=== PATIENT | female | born 1960 | race Caucasian/White ===

== ENCOUNTER 2016-11-14 18:46 | Inpatient (IN) | payer MEDICAID ==
[~2016-11-14] VITALS: Ht 162.6 cm; Wt 70.5 kg
[2016-11-14 21:27] LABS: BASOPHIL % 0.3 % (0-2); PLATELET COUNT 204 x10^3mcL (130-400)
[2016-11-14 21:28] LABS: RED CELL DISTRIBUTION WIDTH 14.6 % (11.5-14.5)
[2016-11-14 22:04] LABS: ALBUMIN 3.4 g/dL (3.4-5.0); BILIRUBIN TOTAL 0.58 mg/dL (0.20-1.00); CALCIUM 8.9 mg/dL (8.5-10.1); CARBON DIOXIDE 27.6 mmol/L (21-32); CREATININE SERUM 1.6 mg/dL (0.6-1.0); POTASSIUM SERUM 4.8 mmol/L (3.5-5.1); T4(THYROXINE) 8.8 ug/dL (4.7-13.3); TOTAL PROTEIN, SERUM 7.6 g/dL (6.4-8.2)
[2016-11-14 23:18] LABS: UA SPECIFIC GRAVITY 1.025 (1.005-1.035); microscopic required? YES
[2016-11-14 23:19] LABS: urine erythrocyte NEGATIVE (NEGATIVE)
[2016-11-14 23:33] LABS: AMPHETAMINE QUAL UR NONE DETECTED (NEG <=1000)
[2016-11-14 23:35] LABS: MAGNESIUM 2.4 mg/dL (1.8-2.4)
[2016-11-15 00:58] VITALS: BP 152/67
[2016-11-15 07:01] LABS: CALCIUM 8.8 mg/dL (8.5-10.1); CARBON DIOXIDE 20.5 mmol/L (21-32); CREATININE SERUM 1.1 mg/dL (0.6-1.0); POTASSIUM SERUM 5.5 mmol/L (3.5-5.1)
[2016-11-15 07:31] LABS: PLATELET COUNT 174 x10^3mcL (130-400)
[2016-11-15 07:33] LABS: BASOPHIL % 0 % (0-2); RED CELL DISTRIBUTION WIDTH 14.8 % (11.5-14.5)
[2016-11-15 09:21] VITALS: BP 169/79
[2016-11-15 11:18] VITALS: Ht 162.6 cm; Wt 70.5 kg
[2016-11-15 15:07] VITALS: BP 185/89
[2016-11-15 17:29] VITALS: BP 189/83
[2016-11-15 21:41] VITALS: BP 133/65
[2016-11-15 21:42] VITALS: BP 133/65
[2016-11-16 05:52] VITALS: BP 171/76
[2016-11-16 06:13] LABS: BASOPHIL % 0.3 % (0-2); PLATELET COUNT 200 x10^3mcL (130-400)
[2016-11-16 06:40] LABS: RED CELL DISTRIBUTION WIDTH 14.7 % (11.5-14.5)
[2016-11-16 07:02] LABS: CALCIUM 8.5 mg/dL (8.5-10.1); CARBON DIOXIDE 28.2 mmol/L (21-32); CHLORIDE SERUM 110 mmol/L (98-107); CREATININE SERUM 0.5 mg/dL (0.6-1.0); GFR1 > 60 mL/min; GLUCOSE SERUM 94 mg/dL (74-106); MAGNESIUM 1.8 mg/dL (1.8-2.4); PHOSPHOROUS 3.5 mg/dL (2.5-4.9); POTASSIUM SERUM 3.3 mmol/L (3.5-5.1); SODIUM SERUM 143 mmol/L (136-145)
[2016-11-16 09:33] VITALS: BP 154/65
[2016-11-16] MEDS ORDERED: METOPROLOL TART25 M1 PO (15:10)
[2016-11-16] MEDS ORDERED: ZES10 PO (15:10)
[2016-11-16] MEDS ORDERED: LIPI10 PO (15:10)
[2016-11-16] MEDS ORDERED: ECO81 PO (15:11)
[2016-11-16] MEDS ORDERED: GLU5 PO (15:11)
[2016-11-16 15:23] VITALS: BP 154/65
[2016-11-16] MEDS ORDERED: METFORMIN850 M1 PO (16:52)
== END 2016-11-16 16:34 | disposition home or self-care (01) | DRG 420 ==
LOC: ED 18:46 → MU 22:05 → DU 22:05 → MU 11-15 10:15
PROVIDERS: Emergency Medicine; ADMIT Family Medicine
DX: E11.00 Type 2 diabetes mellitus with hyperosmolarity without nonketotic hyperglycemic-hyperosmolar coma (NKHHC) (principal); N17.0 Acute kidney failure with tubular necrosis; E11.51 Type 2 diabetes mellitus with diabetic peripheral angiopathy without gangrene; I16.0 Hypertensive urgency; J06.9 Acute upper respiratory infection, unspecified; E87.1 Hypo-osmolality and hyponatremia; E87.6 Hypokalemia; E83.39 Other disorders of phosphorus metabolism; D64.9 Anemia, unspecified; H54.42 Blindness, left eye, normal vision right eye; Z79.84 Long term (current) use of oral hypoglycemic drugs; Z68.26 Body mass index [BMI] 26.0-26.9, adult
CPT/HCPCS: 82962; 83880; 87804; J1815; J2930; J7030; J7613; J7644; Q0092

== ENCOUNTER 2017-04-04 13:10 | Emergency (ER) | payer MEDICAID ==
[~2017-04-04 13:10] MED LIST: ECO81 PO; GLU5 PO; LIPI10 PO; METFORMIN850 M1 PO; METOPROLOL TART25 M1 PO; ZES10 PO
[2017-04-04 13:20] VITALS: BP 195/92
== END 2017-04-04 14:13 | disposition home or self-care (01) ==
LOC: ED 13:10
DX: J06.9 Acute upper respiratory infection, unspecified (principal); H66.92 Otitis media, unspecified, left ear; I10 Essential (primary) hypertension; E11.9 Type 2 diabetes mellitus without complications

== ENCOUNTER 2017-04-17 02:32 | Emergency (ER) | payer MEDICAID ==
[~2017-04-17] VITALS: Ht 160 cm; Wt 68.9 kg
[2017-04-17 02:39] VITALS: Ht 160 cm; Wt 68.9 kg
[2017-04-17 04:08] VITALS: BP 191/86
== END 2017-04-17 04:08 | disposition home or self-care (01) ==
LOC: ED 02:32
DX: J20.9 Acute bronchitis, unspecified (principal); I10 Essential (primary) hypertension; E11.9 Type 2 diabetes mellitus without complications
CPT/HCPCS: Q0092

== ENCOUNTER 2017-08-08 12:19 | Emergency (ER) | payer MEDICAID ==
[2017-08-08 14:56] VITALS: BP 140/72
== END 2017-08-08 14:56 | disposition home or self-care (01) ==
LOC: ED 12:19
DX: J30.9 Allergic rhinitis, unspecified (principal); I10 Essential (primary) hypertension; E11.9 Type 2 diabetes mellitus without complications

== ENCOUNTER 2018-09-13 18:28 | Emergency (ER) | payer MEDICAID ==
[~2018-09-13] VITALS: Ht 157.5 cm; Wt 68.9 kg
[2018-09-13 19:08] VITALS: Ht 157.5 cm; Wt 68.9 kg
[2018-09-13 19:54] LABS: BASOPHIL % 0.4 % (0-2); PLATELET COUNT 342 x10^3mcL (130-400)
[2018-09-13 20:52] LABS: ERYTHROCYTE SED RATE 111 mm/hr (0-30)
[2018-09-14 00:50] VITALS: BP 152/79
== END 2018-09-14 00:50 | disposition home or self-care (01) ==
LOC: ED 18:28
PROVIDERS: Emergency Medicine
DX: E11.621 Type 2 diabetes mellitus with foot ulcer (principal); L97.519 Non-pressure chronic ulcer of other part of right foot with unspecified severity; E11.65 Type 2 diabetes mellitus with hyperglycemia; I10 Essential (primary) hypertension
CPT/HCPCS: 82962; J2543; J3370; J7030; J7050; Q0092

== ENCOUNTER 2019-04-07 11:24 | Inpatient (IN) | payer MEDICAID ==
[~2019-04-07] VITALS: Ht 157.5 cm; Wt 73.9 kg
[2019-04-07 11:47] VITALS: Ht 157.5 cm; Wt 73.9 kg
[2019-04-07 12:33] LABS: ALBUMIN 2.8 g/dL (3.4-5.0); CARBON DIOXIDE 21.5 mmol/L (21-32); CREATININE SERUM 2.5 mg/dL (0.6-1.0); TOTAL PROTEIN, SERUM 6.9 g/dL (6.4-8.2)
[2019-04-07 12:34] LABS: BILIRUBIN TOTAL 0.32 mg/dL (0.20-1.00); CALCIUM 8.2 mg/dL (8.5-10.1)
[2019-04-07 12:39] LABS: POTASSIUM SERUM 6.1 mmol/L (3.5-5.1)
[2019-04-07 12:55] LABS: BASOPHIL % 0.3 % (0-2); PLATELET COUNT 209 x10^3mcL (130-400); RED CELL DISTRIBUTION WIDTH 14.5 % (11.5-14.5)
[2019-04-07] MEDS ORDERED: TRA100 PO (13:31)
[2019-04-07] MEDS ORDERED: LASIX40 MG (13:31)
[2019-04-07 14:50] LABS: MAGNESIUM 2.7 mg/dL (1.8-2.4); PHOSPHOROUS 4.9 mg/dL (2.5-4.9)
[2019-04-07 14:51] LABS: CHOLESTEROL/HDL RATIO 5.3
[2019-04-07 15:33] LABS: FREE T4 0.95 ng/dL (0.76-1.46); FREE THYROXINE INDEX 2.3 ug/dL (1.4-4.5); T4(THYROXINE) 6.3 ug/dL (4.7-13.3)
[2019-04-07 15:52] LABS: T3 TOTAL 0.85 ng/mL
[2019-04-07 16:27] VITALS: BP 197/81
[2019-04-07 16:59] VITALS: BP 191/86
[2019-04-07 21:09] VITALS: BP 152/61
[2019-04-08] VITALS (13 sets, daily range): BP systolic 138–184; BP diastolic 51–77
[2019-04-08 06:25] LABS: BASOPHIL % 0.4 % (0-2); PLATELET COUNT 173 x10^3mcL (130-400); RED CELL DISTRIBUTION WIDTH 14.5 % (11.5-14.5)
[2019-04-08 06:56] LABS: POTASSIUM SERUM 5.5 mmol/L (3.5-5.1)
[2019-04-08 06:57] LABS: CALCIUM 8.2 mg/dL (8.5-10.1); CARBON DIOXIDE 22.1 mmol/L (21-32); CREATININE SERUM 2.6 mg/dL (0.6-1.0)
[2019-04-08 17:43] LABS: microscopic required? YES; urine erythrocyte 1+ (NEGATIVE)
[2019-04-08 21:42] LABS: APPEARANCE FLUID CLEAR; SOURCE FLUID THORACENTESIS
[2019-04-08 21:43] LABS: COLOR FLUID PALE YELLOW; LYMPHOCYTE FLUID 80 %; MONOCYTE FLUID 5 %; RBC FLUID 127 /cumm; WBC FLUID 71 /cumm
[2019-04-09] VITALS (8 sets, daily range): BP systolic 135–170; BP diastolic 48–76
[2019-04-09 06:36] LABS: BASOPHIL % 0.3 % (0-2); PLATELET COUNT 196 x10^3mcL (130-400); RED CELL DISTRIBUTION WIDTH 14.5 % (11.5-14.5)
[2019-04-09 07:33] LABS: CALCIUM 8.4 mg/dL (8.5-10.1); CARBON DIOXIDE 22.7 mmol/L (21-32); CREATININE SERUM 2.6 mg/dL (0.6-1.0); MAGNESIUM 2.6 mg/dL (1.8-2.4); POTASSIUM SERUM 5.1 mmol/L (3.5-5.1)
[2019-04-10] VITALS (9 sets, daily range): BP systolic 135–180; BP diastolic 51–84
[2019-04-10 06:11] LABS: BASOPHIL % 0.3 % (0-2); PLATELET COUNT 182 x10^3mcL (130-400); RED CELL DISTRIBUTION WIDTH 14.5 % (11.5-14.5)
[2019-04-10 07:57] LABS: CALCIUM 8.1 mg/dL (8.5-10.1); CARBON DIOXIDE 23.9 mmol/L (21-32); CREATININE SERUM 2.6 mg/dL (0.6-1.0); POTASSIUM SERUM 5.3 mmol/L (3.5-5.1)
[2019-04-10 18:57] LABS: microscopic required? YES; urine erythrocyte 1+ (NEGATIVE)
[2019-04-11 05:35] VITALS: BP 161/57
[2019-04-11 06:00] LABS: BASOPHIL % 0.3 % (0-2); PLATELET COUNT 188 x10^3mcL (130-400)
[2019-04-11 06:06] LABS: RED CELL DISTRIBUTION WIDTH 14.6 % (11.5-14.5)
[2019-04-11 07:55] LABS: CALCIUM 8.1 mg/dL (8.5-10.1); CREATININE SERUM 2.6 mg/dL (0.6-1.0)
[2019-04-11 08:48] VITALS: BP 160/54
[2019-04-11 08:53] LABS: CARBON DIOXIDE 21.4 mmol/L (21-32); POTASSIUM SERUM 4.7 mmol/L (3.5-5.1)
[2019-04-11 12:17] VITALS: BP 143/54
[2019-04-11 16:54] VITALS: BP 160/65
[2019-04-11 20:58] VITALS: BP 171/71
[2019-04-11 23:30] VITALS: BP 163/64
[2019-04-12 05:57] VITALS: BP 143/61
[2019-04-12 06:44] LABS: CALCIUM 8.4 mg/dL (8.5-10.1); CARBON DIOXIDE 22.8 mmol/L (21-32); CREATININE SERUM 2.7 mg/dL (0.6-1.0); POTASSIUM SERUM 4.5 mmol/L (3.5-5.1)
[2019-04-12 07:14] LABS: BASOPHIL % 0.4 % (0-2); PLATELET COUNT 196 x10^3mcL (130-400)
[2019-04-12 07:18] LABS: RED CELL DISTRIBUTION WIDTH 14.8 % (11.5-14.5)
[2019-04-12 13:41] VITALS: BP 154/56
[2019-04-12 21:06] VITALS: BP 175/57
[2019-04-12 23:00] VITALS: BP 161/57
[2019-04-13 05:58] VITALS: BP 154/50
[2019-04-13 07:05] LABS: CALCIUM 7.8 mg/dL (8.5-10.1); CARBON DIOXIDE 23.9 mmol/L (21-32); CREATININE SERUM 2.7 mg/dL (0.6-1.0); POTASSIUM SERUM 4.7 mmol/L (3.5-5.1)
[2019-04-13 08:52] VITALS: BP 127/51
[2019-04-13 09:59] LABS: BASOPHIL % 0.5 % (0-2); PLATELET COUNT 191 x10^3mcL (130-400)
[2019-04-13 10:16] LABS: RED CELL DISTRIBUTION WIDTH 15.2 % (11.5-14.5)
[2019-04-13] MEDS ORDERED: CORE25 PO (10:27)
[2019-04-13] MEDS ORDERED: LIPI20 PO (10:27)
[2019-04-13] MEDS ORDERED: APR50 PO (10:27)
[2019-04-13] MEDS ORDERED: ECO81 PO (10:27)
[2019-04-13] MEDS ORDERED: L40 PO (10:37)
[2019-04-13 11:11] VITALS: BP 127/51
== END 2019-04-13 12:00 | disposition home or self-care (01) | DRG 194 ==
LOC: ED 11:24 → MU 13:08 → DU 13:08 → MU 04-12 17:09
PROVIDERS: Family Medicine; Internal Medicine; Internal Medicine Cardiovascular Disease; ADMIT Student in an Organized Health Care Education/Training Program
PROC: 0W993ZZ Drainage of Right Pleural Cavity, Percutaneous Approach (ICD-10-PCS; principal; 2019-04-08)
PROC: 0W9B3ZZ Drainage of Left Pleural Cavity, Percutaneous Approach (ICD-10-PCS; 2019-04-11)
DX: I13.0 Hypertensive heart and chronic kidney disease with heart failure and stage 1 through stage 4 chronic kidney disease, or unspecified chronic kidney disease (principal); N17.0 Acute kidney failure with tubular necrosis; I50.43 Acute on chronic combined systolic (congestive) and diastolic (congestive) heart failure; E11.22 Type 2 diabetes mellitus with diabetic chronic kidney disease; J90 Pleural effusion, not elsewhere classified; I42.9 Cardiomyopathy, unspecified; E87.5 Hyperkalemia; J06.0 Acute laryngopharyngitis; N18.9 Chronic kidney disease, unspecified; E78.5 Hyperlipidemia, unspecified; H54.40 Blindness, one eye, unspecified eye; Z79.82 Long term (current) use of aspirin; Z79.84 Long term (current) use of oral hypoglycemic drugs; Z89.421 Acquired absence of other right toe(s); Z68.29 Body mass index [BMI] 29.0-29.9, adult
CPT/HCPCS: 32555; 82962; 83880; 84439; 85378; 90658; 90732; C1729; G0378; J0696; J1815; J1940; J7050; Q0092

== ENCOUNTER 2019-04-25 07:43 | Inpatient (IN) | payer MEDICAID ==
[~2019-04-25] VITALS: Ht 157.5 cm; Wt 70.8 kg
[~2019-04-25 07:43] MED LIST changes: +APR50 PO; +CORE25 PO; +L40 PO; +LASIX40 MG; +LIPI20 PO; +TRA100 PO
[2019-04-25 07:58] VITALS: Ht 157.5 cm; Wt 70.8 kg
[2019-04-25 09:25] LABS: BASOPHIL % 0.1 % (0-2); PLATELET COUNT 162 x10^3mcL (130-400); RED CELL DISTRIBUTION WIDTH 14.1 % (11.5-14.5)
[2019-04-25 09:51] LABS: BILIRUBIN TOTAL 0.5 mg/dL (0.20-1.00); CALCIUM 8.1 mg/dL (8.5-10.1); CARBON DIOXIDE 19.1 mmol/L (21-32); CREATININE SERUM 2.7 mg/dL (0.6-1.0); TOTAL PROTEIN, SERUM 7.1 g/dL (6.4-8.2)
[2019-04-25 09:59] LABS: POTASSIUM SERUM 5.6 mmol/L (3.5-5.1)
[2019-04-25 12:45] LABS: microscopic required? YES; urine erythrocyte 1+ (NEGATIVE)
[2019-04-25 13:10] VITALS: BP 154/72
[2019-04-25 13:44] LABS: MAGNESIUM 2.4 mg/dL (1.8-2.4); PHOSPHOROUS 3.6 mg/dL (2.5-4.9)
[2019-04-25 13:57] VITALS: BP 161/69
[2019-04-25 16:15] VITALS: BP 164/61
[2019-04-25 21:20] VITALS: BP 144/55
[2019-04-26 06:18] VITALS: BP 165/59
[2019-04-26 06:28] LABS: BASOPHIL % 0.4 % (0-2); RED CELL DISTRIBUTION WIDTH 14.1 % (11.5-14.5)
[2019-04-26 07:04] LABS: CALCIUM 7.9 mg/dL (8.5-10.1); CARBON DIOXIDE 19.2 mmol/L (21-32); CREATININE SERUM 2.9 mg/dL (0.6-1.0); POTASSIUM SERUM 4.4 mmol/L (3.5-5.1)
[2019-04-26 07:13] LABS: PLATELET COUNT 128 x10^3mcL (130-400)
[2019-04-26 07:55] VITALS: BP 118/48
[2019-04-26 10:32] LABS: rbc morphology (normal/abnorm) NORMAL (NORMAL)
[2019-04-26 12:55] VITALS: BP 136/34
[2019-04-26 16:24] VITALS: BP 151/60
[2019-04-26 21:31] VITALS: BP 167/68
[2019-04-27 05:30] VITALS: BP 159/66
[2019-04-27 07:00] LABS: CARBON DIOXIDE 19.5 mmol/L (21-32); CREATININE SERUM 3.4 mg/dL (0.6-1.0); POTASSIUM SERUM 4.6 mmol/L (3.5-5.1)
[2019-04-27 08:30] VITALS: BP 157/63
[2019-04-27 08:53] LABS: PLATELET COUNT 130 x10^3mcL (130-400); RED CELL DISTRIBUTION WIDTH 14.1 % (11.5-14.5)
[2019-04-27 08:56] LABS: BASOPHIL % 0 % (0-2)
[2019-04-27 12:13] VITALS: BP 119/50
[2019-04-27 16:29] VITALS: BP 132/81
[2019-04-27 19:21] VITALS: BP 166/57
[2019-04-28] VITALS (8 sets, daily range): BP systolic 147–176; BP diastolic 54–72
[2019-04-28 06:43] LABS: CALCIUM 7.9 mg/dL (8.5-10.1); CARBON DIOXIDE 18.2 mmol/L (21-32); CREATININE SERUM 3.9 mg/dL (0.6-1.0); POTASSIUM SERUM 4.5 mmol/L (3.5-5.1)
[2019-04-29 05:38] VITALS: BP 176/75
[2019-04-29 06:37] LABS: BASOPHIL % 0.3 % (0-2); PLATELET COUNT 136 x10^3mcL (130-400); RED CELL DISTRIBUTION WIDTH 13.7 % (11.5-14.5)
[2019-04-29 06:56] LABS: CALCIUM 7.4 mg/dL (8.5-10.1); CARBON DIOXIDE 18.1 mmol/L (21-32); POTASSIUM SERUM 4.3 mmol/L (3.5-5.1)
[2019-04-29 08:15] VITALS: BP 172/73
[2019-04-29 11:20] VITALS: BP 159/68
[2019-04-29 12:01] VITALS: BP 159/68
[2019-04-29 16:31] VITALS: BP 157/68
[2019-04-29 20:48] VITALS: BP 182/63
[2019-04-30 05:08] VITALS: BP 163/61
[2019-04-30 06:31] LABS: PLATELET COUNT 138 x10^3mcL (130-400); RED CELL DISTRIBUTION WIDTH 13.6 % (11.5-14.5)
[2019-04-30 06:49] LABS: CALCIUM 7.3 mg/dL (8.5-10.1); CARBON DIOXIDE 18.6 mmol/L (21-32); POTASSIUM SERUM 4.2 mmol/L (3.5-5.1)
[2019-04-30 08:39] VITALS: BP 106/52
[2019-04-30 12:04] LABS: BAND NEUTROPHIL 5 % (0-10); BASOPHIL 0 % (0-2); MONOCYTE 14 % (0-7); PLATELET MORPHOLOGY PLATELETS INCREASED; SEGMENTED NEUTROPHILS 64 % (37-75)
[2019-04-30 12:05] LABS: rbc morphology (normal/abnorm) ABNORMAL (NORMAL)
[2019-04-30 13:34] VITALS: BP 175/69
[2019-04-30 17:26] VITALS: BP 181/69
[2019-04-30 18:02] VITALS: BP 161/69
[2019-04-30 20:40] VITALS: BP 178/69
[2019-05-01 02:56] VITALS: BP 135/59
[2019-05-01 05:00] VITALS: BP 153/65
[2019-05-01 07:32] LABS: BASOPHIL % 0.2 % (0-2); PLATELET COUNT 136 x10^3mcL (130-400)
[2019-05-01 07:35] LABS: CALCIUM 7.6 mg/dL (8.5-10.1); CARBON DIOXIDE 25.5 mmol/L (21-32); CREATININE SERUM 2.7 mg/dL (0.6-1.0); POTASSIUM SERUM 3.4 mmol/L (3.5-5.1)
[2019-05-01 08:13] VITALS: BP 163/58
[2019-05-01 13:10] VITALS: BP 154/71
[2019-05-01 20:29] VITALS: BP 182/72
[2019-05-01 23:50] VITALS: BP 151/77
[2019-05-02 05:56] VITALS: BP 179/82
[2019-05-02 06:40] LABS: BASOPHIL % 0.2 % (0-2); RED CELL DISTRIBUTION WIDTH 13.8 % (11.5-14.5)
[2019-05-02 06:44] LABS: PLATELET COUNT 129 x10^3mcL (130-400)
[2019-05-02 07:29] LABS: CALCIUM 7.5 mg/dL (8.5-10.1); CARBON DIOXIDE 25.4 mmol/L (21-32); CREATININE SERUM 3.2 mg/dL (0.6-1.0); POTASSIUM SERUM 3.7 mmol/L (3.5-5.1)
[2019-05-02 08:28] VITALS: BP 176/66
[2019-05-02 14:02] VITALS: BP 162/67
[2019-05-02 18:17] VITALS: BP 159/78
[2019-05-02 20:36] VITALS: BP 113/59
[2019-05-03 05:44] VITALS: BP 166/63
[2019-05-03 06:19] LABS: BASOPHIL % 0.2 % (0-2); PLATELET COUNT 139 x10^3mcL (130-400); RED CELL DISTRIBUTION WIDTH 13.5 % (11.5-14.5)
[2019-05-03 06:52] LABS: CALCIUM 7.4 mg/dL (8.5-10.1); CARBON DIOXIDE 29.5 mmol/L (21-32); CREATININE SERUM 2.4 mg/dL (0.6-1.0); POTASSIUM SERUM 3.6 mmol/L (3.5-5.1)
[2019-05-03 07:39] VITALS: BP 113/56
[2019-05-03 11:34] VITALS: BP 150/65
[2019-05-03] MEDS ORDERED: ZITHROMAX TRI-500 MG PO (12:58)
[2019-05-03] MEDS ORDERED: PRE20 PO (12:59)
[2019-05-03] MEDS ORDERED: PREDNISONE10 MG PO (12:59)
[2019-05-03] MEDS ORDERED: PREDNISONE5 MG PO (13:00)
[2019-05-03] MEDS ORDERED: APR25 PO (13:01)
[2019-05-03 16:14] VITALS: BP 174/79
[2019-05-03 17:13] VITALS: BP 153/66
== END 2019-05-03 17:32 | disposition home or self-care (01) | DRG 720 ==
LOC: ED 07:43 → MU 11:55 → DU 11:55 → MU 05-02 14:03
PROVIDERS: Emergency Medicine; Internal Medicine; Student in an Organized Health Care Education/Training Program; ADMIT Internal Medicine
PROC: 30233N1 Transfusion of Nonautologous Red Blood Cells into Peripheral Vein, Percutaneous Approach (ICD-10-PCS; principal; 2019-04-26)
PROC: 5A1D70Z Performance of Urinary Filtration, Intermittent, Less than 6 Hours Per Day (ICD-10-PCS; 2019-04-30)
PROC: 05HY33Z Insertion of Infusion Device into Upper Vein, Percutaneous Approach (ICD-10-PCS; 2019-04-30)
PROC: B54MZZA Ultrasonography of Right Upper Extremity Veins, Guidance (ICD-10-PCS; 2019-04-30)
PROC: 5A1D70Z Performance of Urinary Filtration, Intermittent, Less than 6 Hours Per Day (ICD-10-PCS; 2019-05-02)
PROC: 05PYX3Z Removal of Infusion Device from Upper Vein, External Approach (ICD-10-PCS; 2019-05-02)
PROC: 05HM33Z Insertion of Infusion Device into Right Internal Jugular Vein, Percutaneous Approach (ICD-10-PCS; 2019-05-02)
DX: A41.9 Sepsis, unspecified organism (principal); N17.0 Acute kidney failure with tubular necrosis; J96.20 Acute and chronic respiratory failure, unspecified whether with hypoxia or hypercapnia; I13.2 Hypertensive heart and chronic kidney disease with heart failure and with stage 5 chronic kidney disease, or end stage renal disease; J18.9 Pneumonia, unspecified organism; N18.5 Chronic kidney disease, stage 5; I42.9 Cardiomyopathy, unspecified; E11.21 Type 2 diabetes mellitus with diabetic nephropathy; I50.43 Acute on chronic combined systolic (congestive) and diastolic (congestive) heart failure; E87.2 Acidosis; E11.22 Type 2 diabetes mellitus with diabetic chronic kidney disease; E11.65 Type 2 diabetes mellitus with hyperglycemia; E87.5 Hyperkalemia; H54.62 Unqualified visual loss, left eye, normal vision right eye; E78.5 Hyperlipidemia, unspecified; D64.9 Anemia, unspecified; Z99.2 Dependence on renal dialysis; Z91.14 Patient's other noncompliance with medication regimen; Z79.84 Long term (current) use of oral hypoglycemic drugs; Z79.4 Long term (current) use of insulin; Z79.82 Long term (current) use of aspirin; Z89.421 Acquired absence of other right toe(s); Z68.25 Body mass index [BMI] 25.0-25.9, adult
CPT/HCPCS: 82962; 83880; 86580; 87804; 97116-GP; A4301; G0378; J0360; J0456; J0696; J1644; J1815; J1940; J2001; J2250; J2405; J2543; J2920; J3010; J3430; J3490; J7030; J7040; J7050; P9016; P9047; Q0092; Q0163

== ENCOUNTER 2019-07-11 08:42 | Emergency (ER) | payer MEDICAID ==
[~2019-07-11] VITALS: Ht 160 cm; Wt 68.0 kg
[~2019-07-11 08:42] MED LIST changes: +APR25 PO; +HYDRALAZINE HCL50 MG PO; +LASIX40 MG PO; +LIPITOR20 MG PO; +PRE20 PO; +PREDNISONE10 MG PO; +PREDNISONE5 MG PO; +ZITHROMAX TRI-500 MG PO
[2019-07-11 08:47] VITALS: Ht 160 cm; Wt 68.0 kg
[2019-07-11 09:54] LABS: CALCIUM 8.2 mg/dL (8.5-10.1); CARBON DIOXIDE 28.3 mmol/L (21-32); CREATININE SERUM 3.5 mg/dL (0.6-1.0); POTASSIUM SERUM 4.5 mmol/L (3.5-5.1)
[2019-07-11 09:58] LABS: BILIRUBIN TOTAL 0.5 mg/dL (0.20-1.00); TOTAL PROTEIN, SERUM 6.7 g/dL (6.4-8.2)
[2019-07-11 09:59] LABS: ALBUMIN 3.1 g/dL (3.4-5.0)
[2019-07-11 10:01] LABS: BASOPHIL % 0.2 % (0-2); PLATELET COUNT 156 x10^3mcL (130-400); RED CELL DISTRIBUTION WIDTH 15.2 % (11.5-14.5)
[2019-07-11 11:19] VITALS: BP 190/78
== END 2019-07-11 11:19 | disposition home or self-care (01) ==
LOC: ED 08:42
PROVIDERS: Emergency Medicine
DX: R10.11 Right upper quadrant pain (principal); E11.22 Type 2 diabetes mellitus with diabetic chronic kidney disease; I12.0 Hypertensive chronic kidney disease with stage 5 chronic kidney disease or end stage renal disease; N18.6 End stage renal disease
CPT/HCPCS: J2405; J3010; Q0092

== ENCOUNTER 2019-10-05 10:28 | Emergency (ER) | payer MEDICAID ==
[~2019-10-05] VITALS: Ht 157.5 cm; Wt 65.8 kg
[2019-10-05 10:33] VITALS: Ht 157.5 cm; Wt 65.8 kg
[2019-10-05 11:47] LABS: BASOPHIL % 0.4 % (0-2); PLATELET COUNT 183 x10^3mcL (130-400)
[2019-10-05 11:51] LABS: RED CELL DISTRIBUTION WIDTH 16.5 % (11.5-14.5)
[2019-10-05 12:07] LABS: ALBUMIN 3.5 g/dL (3.4-5.0); BILIRUBIN TOTAL 0.6 mg/dL (0.20-1.00); CALCIUM 8.5 mg/dL (8.5-10.1); CARBON DIOXIDE 30.6 mmol/L (21-32); POTASSIUM SERUM 5.5 mmol/L (3.5-5.1); TOTAL PROTEIN, SERUM 7.1 g/dL (6.4-8.2)
[2019-10-05 12:12] LABS: CREATININE SERUM 4.2 mg/dL (0.6-1.0)
[2019-10-05 13:02] VITALS: BP 178/53
== END 2019-10-05 13:02 | disposition home or self-care (01) ==
LOC: ED 10:28
PROVIDERS: Emergency Medicine
DX: I10 Essential (primary) hypertension (principal); E87.5 Hyperkalemia; E11.9 Type 2 diabetes mellitus without complications

== ENCOUNTER 2020-05-23 21:07 | Emergency (ER) | payer MEDICAID ==
[~2020-05-23] VITALS: Ht 160 cm; Wt 86.2 kg
[~2020-05-23 21:07] MED LIST changes: +APAP/HYDROCODON1 T13 PO; +CLEOCIN HCL300 MG PO; +CLOPIDOGREL75 M1 PO; +INSULIN SYRING1 EA29 SQ; +KEF500 PO; +LANTI SQ
[2020-05-23 21:16] VITALS: Ht 160 cm; Wt 86.2 kg
[2020-05-23] MEDS ORDERED: BACTRIM DS1 TAB PO (21:48)
[2020-05-23 22:27] VITALS: BP 147/63
== END 2020-05-23 22:28 | disposition home or self-care (01) ==
LOC: ED 21:07
DX: E11.621 Type 2 diabetes mellitus with foot ulcer (principal); I10 Essential (primary) hypertension; I48.91 Unspecified atrial fibrillation; E11.22 Type 2 diabetes mellitus with diabetic chronic kidney disease; I12.0 Hypertensive chronic kidney disease with stage 5 chronic kidney disease or end stage renal disease; N18.6 End stage renal disease; Z99.2 Dependence on renal dialysis